=== PATIENT | male | born 1990 | race African-American/Black ===

== ENCOUNTER 2018-10-09 22:43 | Emergency (ER) | payer SELFPAY ==
[2018-10-09] MEDS ORDERED: MAGNE/ALUM HYDROXD 30 ML UCUP ONE ×3 (23:18→23:19)
[2018-10-09] MEDS ORDERED: LIDOCAINE VISCOUS 2% SOLN 15 ML UDC ONE (23:19)
[2018-10-09] MEDS ORDERED: NA CHLORIDE 0.9% 1,000 ML ONE (23:28)
[2018-10-09 23:34] LABS: Urine Blood NEGATIVE (NEG); Urine Glucose NEGATIVE (NEG); Urine Protein TRACE (NEG); Urine pH 7.5 (5.0-7.0)
[2018-10-09 23:37] LABS: Urine Amorphous Sediment 4+ /HPF (NONE SEEN); Urine Bacteria 20-50 /HPF (NONE SEEN); Urine RBC <5 /HPF (NONE SEEN)
[2018-10-09 23:39] LABS: Absolute Monocytes 0.6 K/uL (0.1-1.3); Absolute Neutrophil 12.5 K/uL (1.8-8.0); Basophils % 0.8 % (0-1.3); Eosinophils % 1.7 % (0-4.4); Hematocrit 51.9 % (39.6-49.0); MCH 33.3 pg (27.0-35.0); MCV 95.5 fL (80-100); MPV 8.9 fL (7.6-11.3); Monocytes % 3.9 % (3.3-12.3); RBC Red Blood Cell Count 5.43 M/uL (4.33-5.43); Urine Culture Reflex Order REFLEXED
[2018-10-09 23:46] LABS: BUN Blood Urea Nitrogen 15 mg/dL (7-18); Bicarbonate 27 mmol/L (21-32); Glucose Level 98 mg/dL (74-106); Potassium 3.9 mmol/L (3.5-5.1); Sodium Level 139 mmol/L (136-145)
[2018-10-10 00:11] LABS: Blood Morphology Comment NOT SEEN (NOT SEEN); Platelet Estimate ADEQ
[2018-10-10] MEDS ORDERED: KETOROLAC 30 MG/ML INJ ONE (00:11)
[2018-10-10] MEDS ORDERED: ONDANSETRON 4 MG/2 ML VIAL ONE (00:21)
[2018-10-10] MEDS ORDERED: NA CHLORIDE 0.9% 1,000 ML ONE (00:34)
[2018-10-10] MEDS ORDERED: PROMETHAZINE 25 MG/ML VIAL ONE (02:24)
[2018-10-10 02:34] LABS: Absolute Lymphocytes (CBC) 0.7 K/uL (0.7-4.9); Absolute Monocytes 0.5 K/uL (0.1-1.3); Absolute Neutrophil 10.6 K/uL (1.8-8.0); Basophils % 0.4 % (0-1.3); Eosinophils % 1.6 % (0-4.4); Hematocrit 45.1 % (39.6-49.0); Lymphocytes % 5.5 % (15.3-44.8); MCH 33.5 pg (27.0-35.0); MCV 96.2 fL (80-100); MPV 8.9 fL (7.6-11.3); Monocytes % 4.5 % (3.3-12.3); RBC Red Blood Cell Count 4.69 M/uL (4.33-5.43)
--- NOTE | 2018-10-10 03:11 | ER ---
Nurse's Notes [facility] Name: Alfonso Coronado Age: 28 yrs Sex: Male : 1990 Arrival Date: 10/09/2018 Time: 22:44 Bed 8 Private MD: Diagnosis: Generalized abdominal pain;Vomiting, unspecified;Dehydration Presentation: 10/09 22:55 Presenting complaint: Patient states: when he woke up sudden abdominal pain at right, rr5 left upper quadrant and right lower quadrant area started at 1600H today. vomited 5x. Positive BM today morning. 22:55 Transition of care: patient was not received from another setting of care. Onset of rr5 symptoms was October 09, 2018 at 16:00. Risk Assessment: Do you want to hurt yourself or someone else? Patient reports no desire to harm self or others. Initial Sepsis Screen: Does the patient meet any 2 criteria? No. Patient's initial sepsis screen is negative. Does the patient have a suspected source of infection? No. Patient's initial sepsis screen is negative. Care prior to arrival: Medication(s) given: Tylenol. 22:55 Method Of Arrival: Ambulatory rr5 22:55 Acuity: [place]QU[place] 3 rr5 Triage Assessment: 23:00 General: Appears in no apparent distress. uncomfortable, ill. General: Behavior is rr5 calm, cooperative. Pain: Complains of pain in right upper quadrant, left upper quadrant and right lower quadrant Pain does not radiate. Pain currently is 8 out of 10 on a pain scale. Quality of pain is described as aching, Pain began suddenly, Is continuous. EENT: No signs and/or symptoms were reported regarding the EENT system. Neuro:. GI: Abdomen is flat, Abdomen is tender to palpation X 4 quads. Guarding noted X 4 quads. Historical: - Allergies: 23:00 No Known Allergies; rr5 - Home Meds: 23:00 None [Active]; rr5 - PMHx: 23:00 hemorrhoids; rr5 - Immunization history:: Adult Immunizations up to date, Flu vaccine is not up to date. - Social history:: Smoking status: Patient uses tobacco products, smokes one-half pack cigarettes per day, Patient uses alcohol, occasionally. street drugs, marijuana. - Ebola Screening: : Patient negative for fever greater than or equal to 101.5 degrees Fahrenheit, and additional compatible Ebola Virus Disease symptoms Patient denies exposure to infectious person Patient denies travel to an Ebola-affected area in the 21 days before illness onset. Screenin:18 Abuse screen: Denies threats or abuse. Denies injuries from another. Nutritional rr5 screening: No deficits noted. Tuberculosis screening: No symptoms or risk factors identified. Fall Risk None identified. Assessment: 23:16 General: Appears in no apparent distress. uncomfortable, ill, Behavior is calm, rr5 cooperative. Pain: Complains of pain in right upper quadrant, left upper quadrant and right lower quadrant Pain does not radiate. Pain currently is 8 out of 10 on a pain scale. Quality of pain is described as aching, Pain began suddenly, Is continuous. Neuro: Level of Consciousness is awake, alert, obeys commands, Oriented to person, place, time, situation. Cardiovascular: Capillary refill < 3 seconds Patient's skin is warm and dry. Respiratory: Airway is patent Respiratory effort is even, unlabored, Respiratory pattern is regular, symmetrical. GI: Abdomen is flat, Bowel sounds present X 4 quads. Guarding noted X 4 quads. : No signs and/or symptoms were reported regarding the genitourinary system. EENT: No signs and/or symptoms were reported regarding the EENT system. Derm: No signs and/or symptoms reported regarding the dermatologic system. Musculoskeletal: No signs and/or symptoms reported regarding the musculoskeletal system. 23:57 Reassessment: Patient appears in no apparent distress at this time. awaiting for ct rr5 result Patient states feeling better. Patient states symptoms have improved. 10/10 00:30 Reassessment: complaints of severe vomiting and abdominal pain. after the medication rr5 and vomited 2x as verbalized he feels a little bit relieved. nicol COLLABORATIVE TEACHER aware. 02:20 Reassessment: Patient appears in no apparent distress at this time. reassess by juancho portillo COLLABORATIVE TEACHER with orders made and carried out. patient still uncomfortable with his abdominal pain. 03:40 Reassessment: Patient appears in no apparent distress at this time. discharged tl2 instruction explained and no complaints made. pain free vitally stable. Patient states feeling better. Patient states symptoms have improved. Vital Signs: 10/09 23:00 BP 138 / 88; Pulse 94; Resp 18; Temp 98.2; Pulse Ox 99% ; Pain 8/10; rr5 10/10 02:20 BP 110 / 51; Pulse 85; Resp 16; Pulse Ox 99% ; Height 6 ft. 3 in. (190.50 cm) (R); rr5 03:40 BP 113 / 65; Pulse 70; Resp 16; Temp 98; Pulse Ox 99% ; Pain 0/10; tl2 ED Course: 10/09 22:44 Patient arrived in ED. ds1 22:53 Nicol Bonds FNP-C [facility]. snw 22:54 Jonathan Donovan MD is Attending Physician. snw 22:57 Boris Iyer RN is Primary Nurse. rr5 23:00 Arm band placed on. rr5 23:01 Triage completed. rr5 23:15 Inserted saline lock: 20 gauge in right antecubital area, using aseptic technique. rr5 Blood collected. inserted by Estelle HART. 23:[address] via wheelchair. kw1 23:35 CT Stone Protocol In Process Unspecified. EDMS 23:39 CT completed. Patient tolerated procedure well. Patient moved back from CT. kw1 10/10 01:00 Patient has correct armband on for positive identification. Bed in low position. Call tl2 light in reach. Side rails up X 1. 03:50 No provider procedures requiring assistance completed. IV discontinued, intact, tl2 bleeding controlled, No redness/swelling at site. Pressure dressing applied. Administered Medications: 10/09 23:15 Drug: GI Cocktail without - (Maalox Suspension 30 ml, Lidocaine Liquid 2 % 15 rr5 ml) Route: PO; 23:25 Drug: NS 0.9% 1000 ml Route: IV; Rate: 1 bolus; Site: right antecubital; lp1 10/10 00:25 Follow up: IV Status: Completed infusion; IV Intake: 1000ml rr5 00:09 Drug: TORadol 30 mg {Note: bp135/74.} Route: IVP; Site: right antecubital; rr5 03:30 Follow up: Response: No adverse reaction tl2 00:15 Drug: Zofran 4 mg Route: IVP; Site: right antecubital; rr5 03:30 Follow up: Response: No adverse reaction tl2 00:29 Drug: NS 0.9% 1000 ml Route: IV; Rate: 1 bolus; Site: right antecubital; rr5 01:17 Follow up: IV Status: Completed infusion; IV Intake: 1000ml rr5 02:20 Drug: Phenergan 6.25 mg Route: IVP; Site: right antecubital; rr5 03:30 Follow up: Response: No adverse reaction tl2 Intake: 00:25 IV: 1000ml; Total: 1000ml. rr5 01:17 IV: 1000ml; Total: 2000ml. rr5 Outcome: 03:10 Discharge ordered by MD. finney 03:50 Discharged to home ambulatory. tl2 03:50 Condition: stable 03:50 Discharge instructions given to patient, Instructed on discharge instructions, follow up and referral plans. medication usage, Demonstrated understanding of instructions, follow-up care, medications, Prescriptions given X 1. 03:53 Patient left the ED. tl2 Signatures: Dispatcher [employer] EDMS Nicol Bonds, POWER HOUSE CONTROL ROOM OPERATOR-C POWER HOUSE CONTROL ROOM OPERATOR-CsnEva Hi ds1 Estelle Mayes RN RN lp1 Tiffanie Daniels RN RN tl2 Lotus Martinez 1 Boris Iyer, RN RN rr5
--- NOTE | 2018-10-10 03:11 | EDPHYS ---
Physician Documentation [facility] Name: Alfonso Coronado Age: 28 yrs Sex: Male : 1990 Arrival Date: 10/09/2018 Time: 22:44 Bed 8 Private MD: ED Physician Jonathan Donovan HPI: 10/09 23:26 This 28 yrs old Black Male presents to ER via Ambulatory with complaints of Abdominal snw Pain - Burning, Vomiting. 23:26 The patient presents with abdominal pain in the epigastric area, in the upper abdomen, snw right lower quadrant. Onset: The symptoms/episode began/occurred suddenly, just prior to arrival. The symptoms radiate to both flanks. Associated signs and symptoms: Pertinent positives: nausea and vomiting. The symptoms are described as burning. Severity of pain: At its worst the pain was moderate. The patient has not experienced similar symptoms in the past. The patient has not recently seen a physician. Historical: - Allergies: 23:00 No Known Allergies; rr5 - Home Meds: 23:00 None [Active]; rr5 - PMHx: 23:00 hemorrhoids; rr5 - Immunization history:: Adult Immunizations up to date, Flu vaccine is not up to date. - Social history:: Smoking status: Patient uses tobacco products, smokes one-half pack cigarettes per day, Patient uses alcohol, occasionally. street drugs, marijuana. - Ebola Screening: : Patient negative for fever greater than or equal to 101.5 degrees Fahrenheit, and additional compatible Ebola Virus Disease symptoms Patient denies exposure to infectious person Patient denies travel to an Ebola-affected area in the 21 days before illness onset. ROS: 23:25 Constitutional: Negative for fever, chills, and weight loss, Eyes: Negative for injury, snw pain, redness, and discharge, ENT: Negative for injury, pain, and discharge, Neck: Negative for injury, pain, and swelling, Cardiovascular: Negative for chest pain, palpitations, and edema, Respiratory: Negative for shortness of breath, cough, wheezing, and pleuritic chest pain, Back: Negative for injury and pain, : Negative for injury, bleeding, discharge, and swelling, MS/Extremity: Negative for injury and deformity, Skin: Negative for injury, rash, and discoloration, Neuro: Negative for headache, weakness, numbness, tingling, and seizure. 23:25 Abdomen/GI: Positive for abdominal pain, nausea and vomiting. Exam: 23:24 Constitutional: This is a well developed, well nourished patient who is awake, alert, snw and anxious. Head/Face: Normocephalic, atraumatic. Eyes: Pupils equal round and reactive to light, extra-ocular motions intact. Lids and lashes normal. Conjunctiva and sclera are non-icteric and not injected. Cornea within normal limits. Periorbital areas with no swelling, redness, or edema. ENT: Nares patent. No nasal discharge, no septal abnormalities noted. Tympanic membranes are normal and external auditory canals are clear. Oropharynx with no redness, swelling, or masses, exudates, or evidence of obstruction, uvula midline. Mucous membranes moist. Neck: Trachea midline, no thyromegaly or masses palpated, and no cervical lymphadenopathy. Supple, full range of motion without nuchal rigidity, or vertebral point tenderness. No Meningismus. Chest/axilla: Normal chest wall appearance and motion. Nontender with no deformity. No lesions are appreciated. Cardiovascular: Regular rate and rhythm with a normal S1 and S2. No gallops, murmurs, or rubs. Normal PMI, no JVD. No pulse deficits. Respiratory: Lungs have equal breath sounds bilaterally, clear to auscultation and percussion. No rales, rhonchi or wheezes noted. No increased work of breathing, no retractions or nasal flaring. Back: No spinal tenderness. No costovertebral tenderness. Full range of motion. Skin: Warm, dry with normal turgor. Normal color with no rashes, no lesions, and no evidence of cellulitis. MS/ Extremity: Pulses equal, no cyanosis. Neurovascular intact. Full, normal range of motion. Neuro: Awake and alert, GCS 15, oriented to person, place, time, and situation. Cranial nerves II-XII grossly intact. Motor strength 5/5 in all extremities. Sensory grossly intact. Cerebellar exam normal. Normal gait. Psych: Awake, alert, with orientation to person, place and time. Behavior, mood, and affect are within normal limits. 23:24 Abdomen/GI: Inspection: abdomen appears normal, Bowel sounds: hyperactive, Palpation: snw mild abdominal tenderness, moderate abdominal tenderness, in the right upper quadrant, left upper quadrant and right lower quadrant. Vital Signs: 23:00 BP 138 / 88; Pulse 94; Resp 18; Temp 98.2; Pulse Ox 99% ; Pain 8/10; rr5 10/10 02:20 BP 110 / 51; Pulse 85; Resp 16; Pulse Ox 99% ; Height 6 ft. 3 in. (190.50 cm) (R); rr5 03:40 BP 113 / 65; Pulse 70; Resp 16; Temp 98; Pulse Ox 99% ; Pain 0/10; tl2 MDM: 10/09 22:54 Patient medically screened. snw 10/10 00:26 Data reviewed: vital signs, nurses notes. Data interpreted: Pulse oximetry: on room air snw is 99 %. Interpretation: normal. Counseling: I had a detailed discussion with the patient and/or guardian regarding: the historical points, exam findings, and any diagnostic results supporting the discharge/admit diagnosis, the presence of at least one elevated blood pressure reading (>120/80) during this emergency department visit, lab results, radiology results. Response to treatment: There is no appreciated change of the patient's symptoms at this time. ED course: CT stone protocol read as Mild gastric distention with fluid, food, and gas, otherwise negative CT. Will rehydrate, recheck labs, and reassess pain level.. 02:35 Special discussion: Based on the patient's Hx, exam, and Dx evaluation, there is no snw indication for emergent surgery or inpatient Tx. It is understood by the patient/guardian that if the Sx's persist or worsen they need to return immediately for re-evaluation. Based on the history and exam findings, there is no indication for further emergent testing or inpatient evaluation. I discussed with the patient/guardian the need to see the primary care provider for further evaluation of the symptoms. 03:05 Transition of care: After a detail discussion of the patient's case, care is snw transferred to Jonathan Donovan MD. 10/09 23:07 Order name: Urine Microscopic Only; Complete Time: 23:43 snw 10/09 23:12 Order name: CBC with Diff; Complete Time: 00:16 snw 10/09 23:12 Order name: Chem 7; Complete Time: 23:47 snw 10/09 23:30 Order name: Urine Dipstick--Ancillary (enter results); Complete Time: 23:43 ar5 11/25 23:39 Order name: Urine Culture EDMS 10/09 23:41 Order name: Manual Differential; Complete Time: 00:16 EDMS 10/09 23:07 Order name: CT Stone Protocol snw 10/10 02:11 Order name: CBC with Diff; Complete Time: 03:09 snw 10/09 23:07 Order name: Urine Dipstick-Ancillary (obtain specimen); Complete Time: 23:14 snw Administered Medications: 10/09 23:15 Drug: GI Cocktail without - (Maalox Suspension 30 ml, Lidocaine Liquid 2 % 15 rr5 ml) Route: PO; 23:25 Drug: NS 0.9% 1000 ml Route: IV; Rate: 1 bolus; Site: right antecubital; lp1 10/10 00:25 Follow up: IV Status: Completed infusion; IV Intake: 1000ml rr5 00:09 Drug: TORadol 30 mg {Note: bp135/74.} Route: IVP; Site: right antecubital; rr5 03:30 Follow up: Response: No adverse reaction tl2 00:15 Drug: Zofran 4 mg Route: IVP; Site: right antecubital; rr5 03:30 Follow up: Response: No adverse reaction tl2 00:29 Drug: NS 0.9% 1000 ml Route: IV; Rate: 1 bolus; Site: right antecubital; rr5 01:17 Follow up: IV Status: Completed infusion; IV Intake: 1000ml rr5 02:20 Drug: Phenergan 6.25 mg Route: IVP; Site: right antecubital; rr5 03:30 Follow up: Response: No adverse reaction tl2 Disposition: 06:58 Co-signature as Attending Physician, Jonathan Donovan MD. pkl Disposition: 10/10/18 03:10 Discharged to Home. Impression: Generalized abdominal pain, Vomiting, unspecified, Dehydration. - Condition is Stable. - Discharge Instructions: Abdominal Pain, Adult, Dehydration, Adult, Nausea and Vomiting, Adult, Clear Liquid Diet, [id number], Rehydration, Adult. - Prescriptions for promethazine 25 mg Oral Tablet - take 1 tablet by ORAL route every 6 hours As needed; 20 tablet. - Work release form, Medication Reconciliation Form, Thank You Letter, Antibiotic Education, Prescription Opioid Use form. - Follow up: Private Physician; When: 1 - 2 days; Reason: Recheck today's complaints, Continuance of care, Re-evaluation by your physician. Follow up: Emergency Department; When: As needed; Reason: Worsening of condition. Signatures: Dispatcher [employer] EDMS Jonathan Donovan MD MD pkl Therrien, Shelly, SORAYA-C FARMWORKER [employer]-Csnw Estelle Mayes, RN RN lp1 Tiffanie Daniels RN RN tl2 Boris Iyer RN RN rr5 Corrections: (The following items were deleted from the chart) 10/09 23:25 23:24 Constitutional: This is a well developed, well nourished patient who is awake, snw alert, and in no acute distress. Head/Face: Normocephalic, atraumatic. Eyes: Pupils equal round and reactive to light, extra-ocular motions intact. Lids and lashes normal. Conjunctiva and sclera are non-icteric and not injected. Cornea within normal limits. Periorbital areas with no swelling, redness, or edema. ENT: Nares patent. No nasal discharge, no septal abnormalities noted. Tympanic membranes are normal and external auditory canals are clear. Oropharynx with no redness, swelling, or masses, exudates, or evidence of obstruction, uvula midline. Mucous membranes moist. Neck: Trachea midline, no thyromegaly or masses palpated, and no cervical lymphadenopathy. Supple, full range of motion without nuchal rigidity, or vertebral point tenderness. No Meningismus. Chest/axilla: Normal chest wall appearance and motion. Nontender with no deformity. No lesions are appreciated. Cardiovascular: Regular rate and rhythm with a normal S1 and S2. No gallops, murmurs, or rubs. Normal PMI, no JVD. No pulse deficits. Respiratory: Lungs have equal breath sounds bilaterally, clear to auscultation and percussion. No rales, rhonchi or wheezes noted. No increased work of breathing, no retractions or nasal flaring. Back: No spinal tenderness. No costovertebral tenderness. Full range of motion. Skin: Warm, dry with normal turgor. Normal color with no rashes, no lesions, and no evidence of cellulitis. MS/ Extremity: Pulses equal, no cyanosis. Neurovascular intact. Full, normal range of motion. Neuro: Awake and alert, GCS 15, oriented to person, place, time, and situation. Cranial nerves II-XII grossly intact. Motor strength 5/5 in all extremities. Sensory grossly intact. Cerebellar exam normal. Normal gait. Psych: Awake, alert, with orientation to person, place and time. Behavior, mood, and affect are within normal limits. snw 23:25 23:24 Respiratory: the patient does not display signs of respiratory distress, snw Respirations: snw 10/10 03:53 03:10 10/10/2018 03:10 Discharged to Home. Impression: Generalized abdominal pain; tl2 Vomiting, unspecified; Dehydration. Condition is Stable. Discharge Instructions: Abdominal Pain, Adult, Dehydration, Adult, Nausea and Vomiting, Adult, Clear Liquid Diet, [id number], Rehydration, Adult. Prescriptions for promethazine 25 mg Oral Tablet - take 1 tablet by ORAL route every 6 hours As needed; 20 tablet. and Forms are Work release form, Medication Reconciliation Form, Thank You Letter, Antibiotic Education, Prescription Opioid Use. Follow up: Private Physician; When: 1 - 2 days; Reason: Recheck today's complaints, Continuance of care, Re-evaluation by your physician. Follow up: Emergency Department; When: As needed; Reason: Worsening of condition. snw
--- NOTE | 2018-10-10 08:27 | RAD REPORT ---
EXAM DESCRIPTION: CT - Stone Protocol - 10/10/2018 5:51 am CLINICAL HISTORY: Flank pain. ABD PAIN COMPARISON: No comparisons TECHNIQUE: Axial images were obtained without oral or IV contrast. Lack of contrast limits solid org an and vascular assessment. The [id number] spans the entirety of the system partially obscuring uppermost abdomen and lung bases. Coronal reformatted images were obtained and reviewed. All CT scans are performed using dose optimization technique as appropriate and may include automated exposure control or mA/KV adjustment according to patient size. FINDINGS: The lower lung gloria are clear. Imaged portions of the liver and spleen show no suspicious findings on non-contrast imaging. The panc reas and adrenal glands are normal. No pathologic lymphadenopathy in the abdomen or pelvis. No urinary tract stones or obstructive uropathy. No bowel obstruction, free air, free fluid or abscess. Normal appendix noted.Prominent fecal retentio n. No significant bony abnormality. IMPRESSION: No urinary tract stones or obstructive uropathy. Prominent fecal retention.
== END 2018-10-10 03:53 | disposition home or self-care (01) ==
LOC: ER 22:43
DX: E86.0 Dehydration (principal); R11.10 Vomiting, unspecified; F17.210 Nicotine dependence, cigarettes, uncomplicated
CPT/HCPCS: 36415; 74176; 76377; 80048; 81003; 81015; 85025; 87086; 87088; 96361; 96374; 96375; 99284; J2405; J2550; J7030